=== PATIENT | male | born 1955 | race Caucasian/White ===

== ENCOUNTER 2016-05-28 09:40 | Outpatient (CLI) | payer MEDICAID | END 2016-05-28 09:41 | disposition home or self-care (01) | DX: I10 Essential (primary) hypertension (principal); R10.9 Unspecified abdominal pain; Z12.5 Encounter for screening for malignant neoplasm of prostate ==

== ENCOUNTER 2016-05-29 16:42 | Inpatient (IN) | payer MEDICAID ==
[2016-05-29] MEDS ORDERED: IPRATROPIUM/ALBUTEROL 3 ML NEB INH STA (17:09)
[2016-05-29] MEDS ORDERED: POTASSIUM BICARB 25 MEQ TABLET PO STA (17:09)
[2016-05-29] MEDS ORDERED: POTASSIUM BICARB 25 MEQ TABLET PO ONE (17:14)
[2016-05-29] MEDS ORDERED: IPRATROPIUM/ALBUTEROL 3 ML NEB INH ONE (17:15)
[2016-05-29] MEDS ORDERED: ALBUTEROL NEB 2.5 MG/3 ML INH STA (18:30)
[2016-05-29] MEDS ORDERED: predniSONE 20 MG TABLET PO STA (18:30)
[2016-05-29] MEDS ORDERED: predniSONE 20 MG TABLET ONE (18:35)
[2016-05-29] MEDS ORDERED: ALBUTEROL NEB 2.5 MG/3 ML INH ONE (18:43)
[2016-05-29] MEDS ORDERED: AZITHROMYCIN INJ 500 MG in SODIUM CHLORIDE 0.9% 250 ML IV STA (19:13)
[2016-05-29] MEDS ORDERED: cefTRIAXone 1 GM in SODIUM CHLORIDE 0.9% MINIBAG 100 ML IV STA (19:13)
[2016-05-29] MEDS ORDERED: SODIUM CHLORIDE 0.9% 1,000 ML IV ONE ×2 (19:14)
[2016-05-29] MEDS ORDERED: cefTRIAXone 1 GM VIAL ONE (19:35)
[2016-05-29] MEDS ORDERED: ACETAMINOPHEN 325 MG TABLET PO PRN (20:02)
[2016-05-29] MEDS ORDERED: SODIUM CHLORIDE FLUSH 0.9% 10 ML SYRINGE IVP PRN (20:02)
[2016-05-29] MEDS ORDERED: ONDANSETRON 4 MG/2 ML VIAL IVP PRN (20:02)
[2016-05-29] MEDS ORDERED: TEMAZEPAM 15 MG CAPSULE PO PRN (20:02)
[2016-05-29] MEDS ORDERED: ALBUTEROL NEB 2.5 MG/3 ML INH PRN (20:10)
[2016-05-29] MEDS ORDERED: predniSONE 20 MG TABLET PO SCH (21:00)
[2016-05-29] MEDS: SODIUM CHLORIDE 0.9% 1,000 ML IV SCH (21:24)
[2016-05-29] MEDS: METOPROLOL SUCCINATE 25 MG TABLET PO SCH (21:24)
[2016-05-29] MEDS: SODIUM CHLORIDE FLUSH 0.9% 10 ML SYRINGE IVP SCH (22:02)
[2016-05-30] MEDS: IPRATROPIUM/ALBUTEROL 3 ML NEB INH SCH ×3 (00:53→12:59)
[2016-05-30] MEDS: SODIUM CHLORIDE FLUSH 0.9% 10 ML SYRINGE IVP SCH (06:51)
[2016-05-30] MEDS: SODIUM CHLORIDE 0.9% 1,000 ML IV SCH (06:54)
[2016-05-30] MEDS ORDERED: PANTOPRAZOLE 40 MG TABLET PO SCH (07:00)
[2016-05-30] MEDS ORDERED: SACCHAROMYCES BOULARDII 250 MG CAPSULE PO SCH (08:00)
[2016-05-30] MEDS: ENOXAPARIN 40 MG/0.4 ML SYRINGE SUBQ SCH (08:24)
[2016-05-30] MEDS: METOPROLOL SUCCINATE 25 MG TABLET PO SCH (08:24)
[2016-05-30] MEDS ORDERED: POLYETHYLENE GLYCOL 3350 17 GM PACKET PO SCH (09:00)
[2016-05-30] MEDS ORDERED: MULTIVITAMIN TABLET PO SCH (09:00)
[2016-05-30] MEDS ORDERED: ASPIRIN CHEW 81 MG TABLET PO SCH (09:00)
[2016-05-30] MEDS ORDERED: AZITHROMYCIN INJ 500 MG in SODIUM CHLORIDE 0.9% 250 ML IV SCH (19:00)
[2016-05-30] MEDS ORDERED: cefTRIAXone 2 GM in SODIUM CHLORIDE 0.9% MINIBAG 100 ML IV SCH (20:00)
== END 2016-05-30 13:30 | disposition home or self-care (01) | DRG 190 ==
DX: J44.0 Chronic obstructive pulmonary disease with (acute) lower respiratory infection (principal); J18.1 Lobar pneumonia, unspecified organism; N17.9 Acute kidney failure, unspecified; J44.1 Chronic obstructive pulmonary disease with (acute) exacerbation; R09.02 Hypoxemia; E86.0 Dehydration; R14.0 Abdominal distension (gaseous); T50.906A Underdosing of unspecified drugs, medicaments and biological substances, initial encounter; Z91.128 Patient's intentional underdosing of medication regimen for other reason; I10 Essential (primary) hypertension; I48.2 Chronic atrial fibrillation; K21.9 Gastro-esophageal reflux disease without esophagitis; Z79.82 Long term (current) use of aspirin; Z87.891 Personal history of nicotine dependence; Z90.49 Acquired absence of other specified parts of digestive tract

== ENCOUNTER 2016-06-10 12:40 | Outpatient (CLI) | payer MEDICAID | END 2016-06-10 12:41 | disposition home or self-care (01) | DX: R73.9 Hyperglycemia, unspecified (principal) ==

== ENCOUNTER 2016-09-08 10:49 | Outpatient (CLI) | payer MEDICAID | END 2016-09-08 10:50 | disposition home or self-care (01) | DX: E88.81 Metabolic syndrome and other insulin resistance (principal) ==